=== PATIENT | male | born 1955 ===

== ENCOUNTER 2018-07-18 12:17 | Inpatient (IN) | payer MEDICARE, MEDICAID ==
[~2018-07-18] VITALS: Ht 175.3 cm; Wt 103.2 kg
--- NOTE | 2018-07-18 12:27 | NUR ---
62 YR OLD MALE ARRIVED VIA CARE FLIGHT, PER REPORT PT WITH INCREASED FATIGUE, SOB. "HAVENT SLEPT IN 48 HOURS" HE CONTACTED HIS CARDIOLOGISTS WAS TOLD TO INCREASE LASIX. NOTICED INCREASED LE SWELLING 2 DAYS AGO. WAS NOTED PTS DUAL PACEMAKER WAS "FIRING EARLY" PT ARRIVES WITH IV IN RH. PACED RHYTHM PER MONITOR, AUTO BP AND PULSE OX IN PLACE.
--- NOTE | 2018-07-18 12:29 | NUR ---
REPORT TO JUICE HYLTON
[2018-07-18] MEDS ORDERED: METO25TA35 PO (12:42)
[2018-07-18] MEDS ORDERED: AMLO10TA8 PO (12:42)
[2018-07-18] MEDS ORDERED: LISI-167 PO (12:42)
[2018-07-18] MEDS ORDERED: METH500T97 PO (12:43)
[2018-07-18] MEDS ORDERED: ASPI-496 PO (12:43)
[2018-07-18] MEDS ORDERED: MELO7.5T31 PO (12:43)
--- NOTE | 2018-07-18 13:30 | NUR ---
PT RESTING IN BED. AWAITING FURTHER TEST RESULTS.
[2018-07-18] MEDS ORDERED: ATOR40TA78 PO (14:16)
[2018-07-18] MEDS ORDERED: DIGO125T10 PO (14:16)
[2018-07-18 14:17] LABS: BASOPHILS # (AUTO) 0.01 x10^3/uL (0-0.1); BASOPHILS % (AUTO) 0 % (0-1); EOSINOPHILS # (AUTO) 0.28 x10^3/uL (0-0.4); EOSINOPHILS % (AUTO) 3 % (1-7); LYMPHOCYTES # (AUTO) 1.93 x10^3/uL (1-3.4); LYMPHOCYTES % (AUTO) 20 % (22-44); MD NO; MEAN CORPUSCULAR HGB CONC 31.4 g/dL (33.2-36.2); MEAN CORPUSCULAR VOLUME 82.8 fL (81-97); MEAN PLATELET VOLUME 7.9 fL (7.4-10.4); MONOCYTES # (AUTO) 0.65 x10^3/uL (0.2-0.8); MONOCYTES % (AUTO) 7 % (2-9); NEUTROPHILS # (AUTO) 6.69 x10^3/uL (1.8-6.8); NEUTROPHILS % (AUTO) 70 % (42-75); PLATELET COUNT 358 x10^3/uL (130-400); RED BLOOD COUNT 4.96 x10^6/uL (4.38-5.82); RED CELL DISTRIBUTION WIDTH 17.9 % (9.4-14.8)
[2018-07-18] MEDS ORDERED: LOSA100T14 PO (14:18)
[2018-07-18] MEDS ORDERED: METO200T47 PO (14:20)
[2018-07-18] MEDS ORDERED: POTA99TA24 PO (14:21)
[2018-07-18 14:25] LABS: ALBUMIN 3.8 g/dL (3.4-5.0); ANION GAP 4 mmol/L (5-15); CHLORIDE 106 mmol/L (98-107); CREATININE 1.82 mg/dL (0.7-1.3)
[2018-07-18] MEDS ORDERED: RIVA20TA PO (14:25)
[2018-07-18] MEDS ORDERED: FURO20TA3 PO (14:26)
[2018-07-18] MEDS ORDERED: LEVO25TA2 PO (14:27)
[2018-07-18] MEDS ORDERED: METF500T17 PO (14:27)
[2018-07-18 14:29] LABS: TROPONIN I 0.096 ng/mL (0.000-0.045)
--- NOTE | 2018-07-18 14:54 | NUR ---
PT RESTING IN BED. VITALS STABLE. REPORT GIVEN TO ADRIANA HYLTON.
--- NOTE | 2018-07-18 14:57 | NUR ---
SBAR report received from RN, Trice.
[2018-07-18] MEDS ORDERED: ASPIRIN 325 MG TABLET ONE (15:08)
--- NOTE | 2018-07-18 15:12 | NUR ---
Pt medicated per MAR.
[2018-07-18] MEDS ORDERED: ASPIRIN 325 MG TABLET PO ONE (15:30)
--- NOTE | 2018-07-18 15:36 | NUR ---
Dr. Pa at bedside to evaluate pt for admission.
--- NOTE | 2018-07-18 15:46 | NUR ---
Telephone SBAR report called to Carli HYLTON. Pt made aware of new room assignment.
[2018-07-18 16:10] LABS: INTERNATIONAL NORMALIZED RATIO 1.31 (0.93-1.1); PROTHROMBIN TIME 13.6 Seconds (9.6-11.5)
[2018-07-18] MEDS ORDERED: ACETAMINOPHEN 325 MG TABLET PO PRN (16:30)
[2018-07-18] MEDS ORDERED: LABETALOL 5 MG/ML SYRINGE IVPush PRN (16:30)
[2018-07-18] MEDS ORDERED: ONDANSETRON 2MG/ML, 2ML IVPush PRN (16:30)
[2018-07-18] MEDS: FUROSEMIDE 40 MG/4 ML IV SCH (17:51)
[2018-07-18] MEDS: HEPARIN 5,000 UNITS/ML, 1ML SQ SCH (17:51)
[2018-07-18 17:54] VITALS: BP 116/68
[2018-07-18] MEDS ORDERED: ATORVASTATIN 80 MG TABLET PO SCH (21:00)
[2018-07-18 21:12] VITALS: BP 100/56
[2018-07-19] MEDS ORDERED: ZOLPIDEM 5MG TABLET PO ONE
[2018-07-19] MEDS: HEPARIN 5,000 UNITS/ML, 1ML SQ SCH (02:13)
[2018-07-19 02:16] VITALS: BP 108/67
[2018-07-19 05:43] LABS: BASOPHILS # (AUTO) 0.06 x10^3/uL (0-0.1); BASOPHILS % (AUTO) 1 % (0-1); EOSINOPHILS # (AUTO) 0.32 x10^3/uL (0-0.4); EOSINOPHILS % (AUTO) 4 % (1-7); LYMPHOCYTES # (AUTO) 2.05 x10^3/uL (1-3.4); LYMPHOCYTES % (AUTO) 24 % (22-44); MD NO; MEAN CORPUSCULAR HEMOGLOBIN 26.9 pg (27.5-34.5); MEAN CORPUSCULAR HGB CONC 32.4 g/dL (33.2-36.2); MEAN CORPUSCULAR VOLUME 82.9 fL (81-97); MEAN PLATELET VOLUME 8.2 fL (7.4-10.4); MONOCYTES # (AUTO) 0.54 x10^3/uL (0.2-0.8); MONOCYTES % (AUTO) 6 % (2-9); NEUTROPHILS # (AUTO) 5.57 x10^3/uL (1.8-6.8); NEUTROPHILS % (AUTO) 65 % (42-75); PLATELET COUNT 319 x10^3/uL (130-400); RED BLOOD COUNT 4.69 x10^6/uL (4.38-5.82); RED CELL DISTRIBUTION WIDTH 16.8 % (9.4-14.8)
[2018-07-19 05:51] LABS: ALBUMIN 3.7 g/dL (3.4-5.0); ANION GAP 8 mmol/L (5-15); CALCIUM 8.6 mg/dL (8.5-10.1); CHLORIDE 105 mmol/L (98-107)
[2018-07-19 05:58] LABS: ALANINE AMINOTRANSFERASE 37 U/L (12-78); ALKALINE PHOSPHATASE 84 U/L (45-117); CREATININE 1.79 mg/dL (0.7-1.3); TOTAL PROTEIN 7.5 g/dL (6.4-8.2); TROPONIN I 0.113 ng/mL (0.000-0.045)
[2018-07-19] MEDS ORDERED: ASPIRIN 325 MG TABLET EC PO SCH (06:00)
[2018-07-19 07:00] VITALS: BP 120/69
[2018-07-19] MEDS: FUROSEMIDE 40 MG/4 ML IV SCH ×2 (08:15→18:32)
[2018-07-19] MEDS ORDERED: DOFE500C PO (14:26)
[2018-07-19 14:35] VITALS: BP 119/66
[2018-07-19 20:46] VITALS: BP 101/58
[2018-07-19] MEDS ORDERED: ATORVASTATIN 40 MG TABLET PO SCH (21:00)
[2018-07-19] MEDS ORDERED: RIVAROXABAN 20 MG TABLET PO SCH (21:00)
[2018-07-19 21:11] VITALS: BP 119/69
[2018-07-19] MEDS: METOPROLOL SUCCINATE 100 MG TAB.ER.24H PO SCH (21:16)
[2018-07-19] MEDS: DIGOXIN 0.125 MG TABLET PO SCH (21:16)
[2018-07-20] MEDS ORDERED: ZOLPIDEM 5MG TABLET ONE (00:12)
[2018-07-20 00:23] VITALS: BP 107/62
[2018-07-20] MEDS ORDERED: ZOLPIDEM 5MG TABLET PO PRN (00:30)
[2018-07-20] MEDS ORDERED: ASPIRIN 81 MG TABLET EC PO SCH (06:00)
[2018-07-20 07:18] LABS: ALANINE AMINOTRANSFERASE 30 U/L (12-78); ALBUMIN 3.4 g/dL (3.4-5.0); ANION GAP 8 mmol/L (5-15); CALCIUM 8.9 mg/dL (8.5-10.1); CHLORIDE 103 mmol/L (98-107); CREATININE 1.84 mg/dL (0.7-1.3)
[2018-07-20 07:20] LABS: ALKALINE PHOSPHATASE 78 U/L (45-117); BILIRUBIN,TOTAL 1.3 mg/dL (0.2-1.0); TOTAL PROTEIN 7.3 g/dL (6.4-8.2)
[2018-07-20] MEDS ORDERED: TRAZODONE 50MG TABLET PO PRN (08:30)
[2018-07-20 08:40] VITALS: BP 109/65
[2018-07-20] MEDS ORDERED: POTASSIUM CHLORIDE 20 MEQ TAB.ER.PRT PO SCH (10:00)
[2018-07-20] MEDS: FUROSEMIDE 40 MG/4 ML IV SCH (10:36)
[2018-07-20] MEDS: DIGOXIN 0.125 MG TABLET PO SCH (10:36)
[2018-07-20] MEDS: METOPROLOL SUCCINATE 100 MG TAB.ER.24H PO SCH (10:36)
== END 2018-07-20 14:27 | disposition home or self-care (01) | DRG 292 ==
LOC: ED 15:10 → 5SO 15:11 → ED 15:25 → DCLOUNGE 07-20 14:05
PROVIDERS: ADMIT Internal Medicine; ATTEND Internal Medicine
DX: I11.0 Hypertensive heart disease with heart failure (principal); I24.8 Other forms of acute ischemic heart disease; N17.9 Acute kidney failure, unspecified; D68.69 Other thrombophilia; I50.23 Acute on chronic systolic (congestive) heart failure; E11.9 Type 2 diabetes mellitus without complications; E78.5 Hyperlipidemia, unspecified; I48.91 Unspecified atrial fibrillation; Z66 Do not resuscitate; Z86.73 Personal history of transient ischemic attack (TIA), and cerebral infarction without residual deficits; Z95.0 Presence of cardiac pacemaker
CPT/HCPCS: 0399T; 36415; 71045; 80048; 80053; 80162; 82040; 82962; 83880; 84443; 84484; 85025; 85610; 85730; 93005; 93306; 99285; G0378; J1644; J1940